=== PATIENT | female | born 1985 | race Caucasian/White ===

== ENCOUNTER 2016-05-04 14:15 | Outpatient (CLI) | payer SELFPAY ==
[2016-03-11 10:01] VITALS: BP 136/74
== END 2016-05-04 14:16 ==
LOC: LAB 14:15
PROVIDERS: ATTEND Family Medicine
DX: A09 Infectious gastroenteritis and colitis, unspecified (principal)
CPT/HCPCS: 87493

== ENCOUNTER 2016-08-31 13:24 | Emergency (ER) | payer OTHER ==
--- NOTE | 2016-08-31 13:46 | ED Physician Documentation ---
Nausea/Vomiting/Diarrhea - HISTORIAN Historian: patient - HPI Stated Complaint: Abdominal Pain Chief Complaint: Abdominal Pain Timing: still present, worse Severity: moderate - Associated Symptoms Vomiting: denies: bloody, blood-streaked Diarrhea: denies: bloody, blood-streaked Abdominal Pain: cramping - ROS CONST: denies: fever, chills - PAST HX Past History: none Other History: denies: gall stones, colon problems, cardiac disease Surgeries/Procedures: none Allergies/Adverse Reactions: Allergies Allergy/AdvReac Type Severity Reaction Status Date / Time ketorolac tromethamine Allergy Severe Shortness Verified 08/31/16 13:41 [From Toradol] of Breath clindamycin Allergy Intermediate Abdominal Verified 08/31/16 13:41 Pain Home Medications: Ambulatory Orders Medication Instructions Recorded Omeprazole [Prilosec] 20 mg PO BID #60 capsule. 08/31/16 - SOCIAL HX Smoking History: greater than 1 pack/day Alcohol Use: occasionally Drug Use: none - FAMILY HX Family History: none - VITAL SIGNS Vital Signs: Vital Signs Temp Pulse Resp BP Pulse Ox 98 F 72 16 118/68 99 08/31/16 13:25 08/31/16 18:26 08/31/16 18:26 08/31/16 18:26 08/31/16 18:26 - REVIEWED ASSESSMENTS Nursing Assessment Reviewed: Yes Vitals Reviewed: Yes ED Results Lab/Radiology - Lab Results Lab Results: Lab Results 08/31/16 08/31/16 13:55 13:55 WBC 11.00 K/ul K/ul (4.00-12.00) RBC 4.17 M/ul M/ul (3.90-5.20) Hgb 13.8 g/dL g/dL (12.0-16.0) Hct 39.6 % % (34.5-46.5) MCV 95.0 fl fl (80.0-100.0) MCH 33.2 pg pg (28.0-34.0) MCHC 34.9 g/dL g/dL (30.0-36.0) RDW 12.7 % % (11.3-14.3) Plt Count 266 K/mm3 K/mm3 (130-400) Neut % (Auto) 78.6 % % (39.0-79.0) Lymph % (Auto) 14.1 % L % (16.0-50.0) Powell % (Auto) 4.9 % % (0.0-11.0) Eos % (Auto) 1.0 % % (0.0-6.8) Baso % (Auto) 0.3 (0.0-1.5) Neut # (Auto) 8.7 # k/uL H # k/uL (1.4-7.7) Lymph # (Auto) 1.6 # k/uL # k/uL (0.6-4.0) Powell # (Auto) 0.5 # k/uL # k/uL (0.0-0.9) Eos # (Auto) 0.1 # k/uL # k/uL (0.0-0.6) Baso # (Auto) 0.0 # k/uL # k/uL (0.0-0.5) Reactive Lymphs % 1.2 % % (0.0-5.0) Reactive Lymphs # 0.1 # k/uL # k/uL (0.0-0.8) Sodium 140 mmol/L mmol/L (136-145) Potassium 3.9 mmol/L mmol/L (3.5-5.0) Chloride 105 mmol/L mmol/L (98-110) Carbon Dioxide 28 mmol/L mmol/L (20-32) BUN 14 mg/dL mg/dL (10-26) Creatinine 0.6 mg/dL mg/dL (0.4-1.5) Estimated Creat Clear 132 Est GFR ( Amer) > 60 (60 - ) Est GFR (Non-Af Amer) > 60 (60 - ) Glucose 105 mg/dL H mg/dL (70-99) Calcium 10.3 mg/dL mg/dL (8.5-10.5) Total Bilirubin 0.8 mg/dL mg/dL (0.2-1.2) AST 37 U/L U/L (0-41) ALT 21 U/L U/L (0-45) Alkaline Phosphatase 76 U/L U/L (46-116) Total Protein 7.5 g/dL g/dL (6.0-8.5) Albumin 5.0 g/dL g/dL (3.0-5.5) Amylase 60 U/L U/L (20-104) - Orders Orders: ED Orders Category Date Time Status ABDOMEN COMPLETE [RAD] Stat Exams 08/31/[address] ABD & PELVIS W/ CON Stat Exams 08/31/16 Completed AMYLASE Routine Lab 08/31/16 13:55 Completed CBC/PLATELET/DIFF Routine Lab 08/31/16 13:55 Completed CMP Routine Lab 08/31/16 13:55 Completed URINALYSIS Routine Lab 08/31/16 15:04 Ordered URINE HCG Routine Lab 08/31/16 15:04 Ordered 0.9 % Sodium Chloride [Normal Saline] 1,000 ml Med 08/31/16 14:00 Discontinued IV .Q1H 0.9 % Sodium Chloride [Normal Saline] 1,000 ml Med 08/31/16 13:56 Discontinued IV .STK-MED Acetaminophen [Tylenol Extra Strength] Med 08/31/16 16:15 Discontinued 1,000 mg .ROUTE .STK-MED ONE Acetaminophen [Tylenol Extra Strength] Med 08/31/16 16:19 Discontinued 1,000 mg PO NOW ONE Lidocaine 2%Visc 15ml [Xylocaine] Med 08/31/16 14:29 Discontinued 300 mg .ROUTE .STK-MED ONE Mag Hydrox/Al Hydrox/Simeth [Mylanta] 30 ml Med 08/31/16 13:56 Discontinued Lidocaine 2%Visc 15ml [Xylocaine] 20 mg PHENobarb/HYOSCY/ATROPINE/SCOP [] 10 ml PO NOW Magnesium Hydroxide/Al Hydrox [Maalox] Med 08/31/16 14:29 Discontinued 30 ml PO .STK-MED ONE Ondansetron HCl/Pf [Zofran 4 mg/2 ml] Med 08/31/16 13:54 Discontinued 4 mg IVP NOW ONE Nausea Physical Exam - EXAM General Appearance: alert, mild distress Neck: normal inspection, thyroid normal, supple. No: lymphadenopathy Respiratory: no resp distress, chest non-tender CVS: reg rate & rhythm, heart sounds normal, equal pulses, no murmur, no gallop Abdomen: non-tender, no organomegaly. No: tenderness, guarding, rebound Back: non-tender, painless ROM Skin: warm/dry, normal color Extremities: non-tender, normal range of motion Neuro/Psych: oriented X3, CN's nml as tested, mood/affect nml, cognition normal Discharge Clincal Impression: Abdominal pain Qualifiers: Abdominal location: left upper quadrant Qualified Code(s): R10.12 - Left upper quadrant pain Prescriptions: Omeprazole [Prilosec] 20 mg PO BID #60 capsule. Referrals: Primary Doctor,No [Primary Care Provider] - 2 Days Additional Instructions: Stop caffeine, chocolates, alcohol, tobacco and spicy foods. Take omeprazole twice a day. watch for any bllod in your stool or vomit. Home Medications: Ambulatory Orders Omeprazole [Prilosec] 20 mg PO BID #60 capsule. 08/31/16 Condition: Stable Disposition: 01 HOME, SELF-CARE Decision to Admit: NO Date of Decison to Admit: 08/31/16 Decision Time: 17:42
[2016-08-31] MEDS: 0.9 % SODIUM CHLORIDE 1,000 ML IV SCH (13:55)
[2016-08-31] MEDS ORDERED: 0.9 % SODIUM CHLORIDE 1,000 ML IV ONE (13:56)
[2016-08-31] MEDS: ONDANSETRON HCL/PF 4 MG/ 2ML VIAL IVP ONE (13:56)
[2016-08-31 14:02] LABS: BASOPHILS % 0.3 (0.0-1.5); MEAN CORPUSCULAR HEMOGLOBIN 33.2 pg (28.0-34.0); MONOCYTES % 4.9 % (0.0-11.0); NEUTROPHILS # 8.7 # k/uL (1.4-7.7)
[2016-08-31] MEDS: MAG HYDROX/AL HYDROX/SIMETH 30 ML, Lidocaine 2%Visc 15ml 20 MG, PHENobarb/HYOSCY/ATROPI... PO ONE ×3 (14:10)
[2016-08-31 14:12] LABS: eGFR (African) > 60; eGFR (Non-African) > 60
[2016-08-31] MEDS ORDERED: Lidocaine 2%Visc 15ml 20 MG/ML UDC ONE (14:29)
[2016-08-31] MEDS ORDERED: MAGNESIUM HYDROXIDE/AL HYDROX 30 ML UDC PO ONE (14:29)
--- NOTE | 2016-08-31 15:05 | Diagnostic Imaging Report ---
JASPAL FALCON [facility] [address] [facility] [address] [address] Report Submission Date: Aug 31, 2016 2:36:20 PM CDT Patient Study Name: ELZA RIVERA Date: Aug 31, 2016 2:10:10 PM CDT Modality Type: CR Gender: F Description: ABDOMEN : 85 Institution: [facility] Physician: JASPAL FALCON Examination: Obstruction series History: Abdominal discomfort Findings: 3 views obtained of the abdomen. No abnormal dilation of the large or small bowel. Air and stool throughout the large bowel. Upright films without suspicious air fluid levels. No suspicious calcification projecting over the renal fossa or the lower pelvic region. Osseous structures are appropriate for age. Impression: No ileus or obstruction. No suspicious calcifications by plain film sensitivity. Electronically signed on Aug 31, 2016 2:36:20 PM CDT by: Yaron CARRILLO
[2016-08-31] MEDS ORDERED: ACETAMINOPHEN 500 MG TABLET ONE (16:15)
[2016-08-31] MEDS: ACETAMINOPHEN 500 MG TABLET PO ONE (16:20)
--- NOTE | 2016-08-31 18:27 | Diagnostic Imaging Report ---
[facility] [address] [facility] [address] [place] [address]. [address] Report Submission Date: Aug 31, 2016 5:32:55 PM CDT Patient Study Name: ELZA RIVERA Date: Aug 31, 2016 5:05:42 PM CDT Modality Type: CT\SR Gender: F Description: CT ABD & PELVIS W/ CON : 85 Institution: [facility] Physician: JASPAL FALCON Examination: CT Abdomen/pelvis History: Left quadrant abdominal discomfort Comparison exams: Plain films dated 31 August 2016 Technique: CT Abdomen/pelvis with IV protocol. Findings: Liver, spleen, adrenals, pancreas, kidneys and gallbladder are without gross irregularity. Kidneys without suspicious calcification. Ureters do not appear to be dilated. No abnormal enhancement. Bowel unopacified limiting evaluation. No abnormal dilation. Stool within the large bowel limiting sensitivity. No mesenteric inflammatory changes or free fluid. Appendix is not visualized however no evidence for cecal/appendiceal region inflammatory changes. Osseous structures within normal limits. Lung bases without infiltrate. Impression: No abdominal mass or inflammatory process. No evidence for abnormal bowel dilation. No suspicious calcification involving the kidneys or ureters. No abnormal dilation. Electronically signed on Aug 31, 2016 5:32:55 PM CDT by: Yaron CARRILLO
[2016-08-31 18:28] VITALS: BP 118/68
[2016-09-01 05:59] LABS: APPEARANCE,URINE CLEAR (CLEAR); COLOR,URINE YELLOW (YELLOW); OCCULT BLOOD,URINE NEGATIVE (NEGATIVE); PH URINE 7.5 (5.0 - 8.0); URINE HCG NEGATIVE (NEGATIVE); UROBILINOGEN URINE 0.2 Eu (0.2-1.0)
== END 2016-08-31 18:26 | disposition home or self-care (01) ==
LOC: ED 13:24
DX: R10.12 Left upper quadrant pain (principal)
CPT/HCPCS: 74020; 74177; 80053; 82150; 85025; A9270; J2405; J7030; Q9966; 81002; 81025; 96361; 96374; 99283; A9698; S1016

== ENCOUNTER 2018-05-25 15:53 | Outpatient (CLI) | payer OTHER, MEDICAID ==
[2016-11-24 05:05] VITALS: BP 122/89
--- NOTE | 2018-05-27 06:24 | Diagnostic Imaging Report ---
RUAL CLARK [facility] [address] [facility] [address] Report Submission Date: May 25, 2018 4:54:44 PM CDT Patient Study Name: ELZA RIVERA Date: May 25, 2018 4:08:22 PM CDT Modality Type: DX Gender: F Description: FOOT 3 VIEWS OR MORE : 85 Institution: [facility] Physician: RAUL CLARK Left foot History: Pain with weight-bearing. The patient had a donor bone placed in her foot in 2014. Findings: Three views of the left foot were obtained which demonstrate no evidence for acute fracture or dislocation. Alignment and mineralization of the foot is normal. Please see separate left ankle report with regard to findings involving the anterior calcaneus. Impression: Please left ankle report with regard to findings involving the anterior calcaneus. The remainder of the left foot is unremarkable. Electronically signed on May 25, 2018 4:54:44 PM CDT by: Annamaria CARRILLO
--- NOTE | 2018-05-27 06:24 | Diagnostic Imaging Report ---
RAUL CLARK [facility] [address] [facility] [address] Report Submission Date: May 25, 2018 4:53:24 PM CDT Patient Study Name: ELZA RIVERA Date: May 25, 2018 4:08:22 PM CDT Modality Type: DX Gender: F Description: ANKLE 3 VIEWS OR MORE : 85 Institution: [facility] Physician: RAUL CLARK Left ankle History: The patient had a donor bone placed in her foot in June of 2014 and has worsening pain with weight-bearing Three views of the left ankle demonstrate no osseous abnormality of the ankle joint. The talar dome and ankle mortise are intact. There is a rectangular shaped density along the anterior calcaneus measuring 12 x 7 mm, presumably the donor bone. Along the plantar surface of the calcaneus in this location, there is an area of hypertrophic bone formation measuring approximately 7 mm in length. This hypertrophic bone formation may represent the source of the patient's pain with weight-bearing. Impression: Please see body of report with regard to the anterior calcaneus. Electronically signed on May 25, 2018 4:53:24 PM CDT by: Annamaria CARRILLO
== END 2018-05-25 15:55 ==
LOC: RAD 15:53
PROVIDERS: ATTEND Podiatrist Foot & Ankle Surgery
DX: M79.672 Pain in left foot (principal); M25.572 Pain in left ankle and joints of left foot; Z94.6 Bone transplant status
CPT/HCPCS: 73610; 73630

== ENCOUNTER 2018-08-02 15:30 | Outpatient (CLI) | payer OTHER, MEDICAID ==
[2016-11-24 05:05] VITALS: BP 122/89
[2018-08-09 09:09] LABS: BASOPHILS % 0.4 % (0.0-1.5); NEUTROPHILS # 10.9 # k/uL (1.4-7.7); eGFR (Non-African) > 60
== END 2018-08-02 15:35 | disposition home or self-care (01) ==
LOC: LABRHC 15:30
PROVIDERS: ATTEND Family Medicine
DX: R11.2 Nausea with vomiting, unspecified (principal)
CPT/HCPCS: 36415; 80053; 83690; 85025

== ENCOUNTER 2018-09-20 12:37 | Outpatient (CLI) | payer OTHER ==
[2016-11-24 05:05] VITALS: BP 122/89
[2018-09-20 13:52] LABS: TSH 1.33 mIU/l (0.465-4.685)
== END 2018-09-20 12:40 ==
LOC: LAB 12:37
PROVIDERS: ATTEND Family Medicine
DX: R63.4 Abnormal weight loss (principal)
CPT/HCPCS: 36415; 84439; 84443; 84481

== ENCOUNTER 2018-10-18 15:45 | Outpatient (CLI) | payer MEDICAID, OTHER ==
[2016-11-24 05:05] VITALS: BP 122/89
[2018-10-18 16:50] LABS: BASOPHILS % 0.5 % (0.0-1.5); NEUTROPHILS # 7.8 # k/uL (1.4-7.7)
[2018-10-18 17:33] LABS: eGFR (Non-African) > 60
== END 2018-10-18 15:47 ==
LOC: LAB 15:45
PROVIDERS: ATTEND Family Medicine
DX: Z01.419 Encounter for gynecological examination (general) (routine) without abnormal findings (principal); D50.0 Iron deficiency anemia secondary to blood loss (chronic); G60.9 Hereditary and idiopathic neuropathy, unspecified; R23.2 Flushing; F99 Mental disorder, not otherwise specified; R63.4 Abnormal weight loss
CPT/HCPCS: 36415; 80053; 82672; 83001; 83002; 84703; 85025; 88148; G0143

== ENCOUNTER 2018-10-20 16:54 | Outpatient (CLI) | payer OTHER, MEDICAID ==
[2016-11-24 05:05] VITALS: BP 122/89
== END 2018-10-20 16:56 ==
LOC: LAB 16:54
PROVIDERS: ATTEND Family Medicine
DX: M79.672 Pain in left foot (principal); R63.4 Abnormal weight loss
CPT/HCPCS: 36415; 83516; 85651; 86038; 86160; 86225; 86235; 86376; 86800

== ENCOUNTER 2018-12-04 10:35 | Outpatient (CLI) | payer OTHER, MEDICAID ==
[2016-11-24 05:05] VITALS: BP 122/89
--- NOTE | 2018-12-04 11:09 | Diagnostic Imaging Report ---
PATIENT MR#: [id number] PATIENT PATIENT NAME: ELZA RIVERA DATE OF : 1985 REFERRING PHYSICIAN: Feliciano Kraus EXAM DATE: 12/04/2018 ACCESSION NUMBER: [id number] EXAM DESCRIPTION: FOOT 3 VIEWS OR MORE Exam: Right foot 3 views Indication: ORDER STATES INJURY OF RT FOOT, INITIAL ENCOUNTER (Hx) / Note time : 12/04/2018 10:50:28 AM User : David Espinal ORDER STATES INJURY OF RT FOOT, INITIAL ENCOUNT ER (DICOM Hx) (DICOM Hx) Findings: No acute fracture, subluxation, dislocation or other osseous abnormality is identified. If clinical symptoms persist follow up examination may be warranted to exclude an occult process. Impression: No acute osseous abnormality. Read by: Dr. Braden tSeele Transcribed by: Transcribed Date: Electronically signed by: Dr. Braden Steele Date signed: 12/04/2018 11:08:53 AM
== END 2018-12-04 10:40 ==
LOC: RAD 10:35
PROVIDERS: ATTEND Family Medicine
DX: S99.921A Unspecified injury of right foot, initial encounter (principal); X50.9XXA Other and unspecified overexertion or strenuous movements or postures, initial encounter
CPT/HCPCS: 73630